=== PATIENT | female | born 1995 | race Caucasian/White ===

== ENCOUNTER 2024-04-28 10:44 | Day surgery (SDC) | payer BC ==
[2024-04-28 11:09] VITALS: BMI 30.7
[2024-04-28] MEDS ORDERED: hydrALAZINE 20 MG/ML VIAL SLOW IVP PRN (11:18)
[2024-04-28 11:51] LABS: Bilirubin Neg (Negative); Blood, Urine Negative (Negative); Clarity Cloudy (Clear); Glucose, Urine (Dipstick) Normal (Negative); Ketone, Urine Negative (Negative); Leukocyte 500 (Negative); Nitrite Negative (Negative); Protein, Urine (Dipstick) 15 mg/dl (Neg-Trace); Specific Gravity, Urine 1.015 (1.005-1.030); Urobilinogen Normal mg/dL (Less than 2)
[2024-04-28] MEDS: Lactated Ringer's 1,000 ML IV SCH (12:08)
[2024-04-28 12:09] LABS: Bacteria/HPF 4+ HPF (None Seen); CAUTI Indications for Culture Pregnancy; RBC/HPF None Seen HPF (0-3); Squamous Epithelial Greater than 50 HPF (0-3)
[2024-04-28 12:12] LABS: Urine Culture Reflex Yes Yes
[2024-04-28 12:33] LABS: #Basophils 0.04 10x3/uL (0.0-0.2); #Eosinophils 0.15 10x3/uL (0.0-0.5); #Monocytes 0.71 10x3/uL (0.0-1.1); #Neutrophils 7.72 10x3/uL (1.5-8.4); %Basophils 0.4 % (0.0-2.0); %Eosinophils 1.4 % (0.0-6.0); %Monocytes 6.5 % (0.0-10.0); %Neutrophils 70.2 % (40.0-75.0); Hematocrit 36.4 % (34.9-44.5); Mean Corpuscular Hemoglobin 30.2 pg (27.0-33.0); Mean Corpuscular Volume 91.7 fL (81.6-98.3); Mean Platelet Volume 10.4 fL (7.4-10.4); Platelet Count 237 10x3/uL (150-450); Red Blood Cell (RBC) Count 3.97 10x6/uL (3.90-5.03); White Blood Cell (WBC) Count 10.97 10x3/uL (3.5-10.5)
[2024-04-28] MEDS: cefTRIAXone\\ROCEPHIN 1 GM in Sodium Chloride 0.9% 100 ML IVPB SCH (12:38)
[2024-04-28 12:48] LABS: ALT (SGPT) 9 U/L (8-55); AST (SGOT) 15 U/L (5-34); Albumin 3.1 g/dL (3.5-5.0); Alkaline Phosphatase 105 U/L (40-110); Anion Gap 13 mmol/L (10-20); BUN (Urea Nitrogen) 5 mg/dL (7.0-18.7); Calc. Creatinine Clearance 181 mL/min (70-130); Calcium 9.1 mg/dL (7.8-10.44); Carbon Dioxide 21 mmol/L (22-29); Chloride 106 mmol/L (98-107); Estimated GFR 123; Globulin 3.3 g/dL (2.4-3.5); Glucose 77 mg/dL (70-105); Potassium 3.9 mmol/L (3.5-5.1); Protein, Total 6.4 g/dL (6.0-8.3); Sodium 136 mmol/L (136-145)
== END 2024-04-28 13:30 | disposition home health service (06) ==
LOC: CSHLD/OP 10:44
PROVIDERS: ATTEND Obstetrics & Gynecology
DX: O47.03 False labor before 37 completed weeks of gestation, third trimester (principal); O35.B Maternal care for other (suspected) fetal abnormality and damage, fetal cardiac anomalies; Q21.9 Congenital malformation of cardiac septum, unspecified; O99.343 Other mental disorders complicating pregnancy, third trimester; F41.9 Anxiety disorder, unspecified; O23.43 Unspecified infection of urinary tract in pregnancy, third trimester; O23.593 Infection of other part of genital tract in pregnancy, third trimester; B96.89 Other specified bacterial agents as the cause of diseases classified elsewhere; Z98.84 Bariatric surgery status; Z3A.34 34 weeks gestation of pregnancy; Z98.890 Other specified postprocedural states; Z79.899 Other long term (current) drug therapy
CPT/HCPCS: 80053; 81001; 85025; 87086; 87480; 87510; 87660; 96360; 99284; J0696

== ENCOUNTER 2024-04-29 12:37 | Day surgery (SDC) | payer BC ==
[2024-04-29 13:17] VITALS: BMI 30.7
[2024-04-29] MEDS ORDERED: hydrALAZINE 20 MG/ML VIAL SLOW IVP PRN (13:44)
== END 2024-04-29 14:04 | disposition home or self-care (01) ==
LOC: CSHLD/OP 12:37
PROVIDERS: ATTEND Obstetrics & Gynecology
DX: O23.43 Unspecified infection of urinary tract in pregnancy, third trimester (principal); O23.593 Infection of other part of genital tract in pregnancy, third trimester; B96.89 Other specified bacterial agents as the cause of diseases classified elsewhere; O47.03 False labor before 37 completed weeks of gestation, third trimester; Z3A.34 34 weeks gestation of pregnancy; Z79.899 Other long term (current) drug therapy
CPT/HCPCS: 99282

== ENCOUNTER 2024-05-18 18:49 | Day surgery (SDC) | payer BC ==
[2024-05-18 19:11] VITALS: BMI 31.1
[2024-05-18] MEDS ORDERED: hydrALAZINE 20 MG/ML VIAL SLOW IVP PRN (19:25)
[2024-05-18 19:55] LABS: #Basophils Less than 0.03 10x3/uL (0.0-0.2); #Monocytes 0.86 10x3/uL (0.0-1.1); #Neutrophils 7.27 10x3/uL (1.5-8.4); %Basophils 0.2 % (0.0-2.0); %Eosinophils 1.9 % (0.0-6.0); %Lymphocytes 20.9 % (18.0-47.0); %Monocytes 8.1 % (0.0-10.0); %Neutrophils 68.5 % (40.0-75.0); Hematocrit 33.4 % (34.9-44.5); Hemoglobin 11.5 g/dL (12.0-15.5); Mean Corpuscular HGB CONC 34.4 g/dL (32.0-36.0); Mean Corpuscular Hemoglobin 31.3 pg (27.0-33.0); Mean Corpuscular Volume 90.8 fL (81.6-98.3); Mean Platelet Volume 11.1 fL (7.4-10.4); Platelet Count 230 10x3/uL (150-450); RBC Distribution Width 13.9 % (11.5-14.5); Red Blood Cell (RBC) Count 3.68 10x6/uL (3.90-5.03); White Blood Cell (WBC) Count 10.61 10x3/uL (3.5-10.5)
[2024-05-18 20:09] LABS: ALT (SGPT) Less than 7 U/L (Less than 34); AST (SGOT) 18 U/L (11-34); Albumin 2.9 g/dL (3.1-4.5); Alkaline Phosphatase 103 U/L (40-110); Anion Gap 11 mmol/L (10-20); BUN (Urea Nitrogen) 6 mg/dL (7.0-18.7); Bilirubin, Total 0.6 mg/dL (0.3-1.2); Calc. Creatinine Clearance 209 mL/min (70-130); Calcium 8.7 mg/dL (7.8-10.44); Carbon Dioxide 21 mmol/L (22-29); Chloride 110 mmol/L (98-107); Estimated GFR 127; Globulin 3.4 g/dL (2.4-3.5); Glucose 96 mg/dL (70-105); Potassium 3.3 mmol/L (3.5-5.1); Protein, Total 6.3 g/dL (6.0-8.3); Sodium 139 mmol/L (136-145)
[2024-05-18 20:56] LABS: Bilirubin Neg (Negative); Blood, Urine Negative (Negative); Clarity Clear (Clear); Glucose, Urine (Dipstick) Normal (Negative); Ketone, Urine Negative (Negative); Leukocyte 500 (Negative); Nitrite Negative (Negative); Protein, Urine (Dipstick) 15 mg/dl (Neg-Trace); Urobilinogen Normal mg/dL (Less than 2); pH, Urine 6.5 (5.0-9.0)
[2024-05-18 21:13] LABS: CAUTI Indications for Culture Pregnancy; RBC/HPF 0-3 HPF (0-3)
[2024-05-18 21:14] LABS: Transitional Epithelial 0-3 HPF (None Seen)
[2024-05-18 21:15] LABS: Bacteria/HPF 2+ HPF (None Seen); Mucous/LPF 1+ LPF (<2+)
[2024-05-18 21:16] LABS: Urine Culture Reflex Yes Yes
== END 2024-05-18 21:45 | disposition home or self-care (01) ==
LOC: CSHLD/OP 18:49
PROVIDERS: ATTEND Obstetrics & Gynecology
DX: O47.1 False labor at or after 37 completed weeks of gestation (principal); O99.891 Other specified diseases and conditions complicating pregnancy; R51.9 Headache, unspecified; H53.9 Unspecified visual disturbance; O24.419 Gestational diabetes mellitus in pregnancy, unspecified control; F39 Unspecified mood [affective] disorder; O99.343 Other mental disorders complicating pregnancy, third trimester; O98.513 Other viral diseases complicating pregnancy, third trimester; B00.9 Herpesviral infection, unspecified; Z3A.36 36 weeks gestation of pregnancy; Z79.899 Other long term (current) drug therapy
CPT/HCPCS: 36415; 76819; 80053; 81001; 82570; 84156; 85025; 87086; 99283

== ENCOUNTER 2024-05-27 19:04 | Inpatient (IN) | payer BC ==
[~2024-05-27 19:04] MED LIST: Bupivacaine 0.25% HCL 30 ML VIAL ONE
[2024-05-27] MEDS ORDERED: hydrALAZINE 20 MG/ML VIAL SLOW IVP PRN ×2 (20:02→21:56)
[2024-05-27 20:09] VITALS: BMI 31.6
[2024-05-27 20:44] LABS: Creatinine, Urine 174.59 mg/dL (16.00-327.00)
[2024-05-27 21:35] LABS: #Basophils 0.03 10x3/uL (0.0-0.2); #Eosinophils 0.16 10x3/uL (0.0-0.5); #Monocytes 0.81 10x3/uL (0.0-1.1); %Basophils 0.3 % (0.0-2.0); %Eosinophils 1.5 % (0.0-6.0); %Lymphocytes 23.3 % (18.0-47.0); %Monocytes 7.4 % (0.0-10.0); %Neutrophils 67.1 % (40.0-75.0); Hematocrit 34.4 % (34.9-44.5); Hemoglobin 11.4 g/dL (12.0-15.5); Mean Corpuscular HGB CONC 33.1 g/dL (32.0-36.0); Mean Corpuscular Volume 90.5 fL (81.6-98.3); Mean Platelet Volume 11.3 fL (7.4-10.4); Platelet Count 214 10x3/uL (150-450); RBC Distribution Width 13.9 % (11.5-14.5); White Blood Cell (WBC) Count 11.01 10x3/uL (3.5-10.5)
[2024-05-27 21:50] LABS: ALT (SGPT) Less than 7 U/L (Less than 34); AST (SGOT) 15 U/L (11-34); Alkaline Phosphatase 118 U/L (40-110); Anion Gap 12 mmol/L (10-20); BUN (Urea Nitrogen) 7 mg/dL (7.0-18.7); Bilirubin, Total 0.7 mg/dL (0.3-1.2); Calc. Creatinine Clearance 202 mL/min (70-130); Calcium 8.5 mg/dL (7.8-10.44); Carbon Dioxide 21 mmol/L (22-29); Chloride 109 mmol/L (98-107); Estimated GFR 125; Globulin 3.4 g/dL (2.4-3.5); Glucose 79 mg/dL (70-105); Potassium 3.5 mmol/L (3.5-5.1); Protein, Total 6.4 g/dL (6.0-8.3); Sodium 138 mmol/L (136-145)
[2024-05-27] MEDS ORDERED: fentaNYL 50 mcg/mL 1 mL Vial SLOW IVP PRN (21:56)
[2024-05-27] MEDS ORDERED: Lidocaine 1% (PF) 30 ML VIAL SC PRN (21:56)
[2024-05-27] MEDS ORDERED: Tranexamic Acid 1,000 MG/10 ML VIAL IVP PRN (21:56)
[2024-05-27] MEDS: Lactated Ringer's 1,000 ML IV SCH (21:56)
[2024-05-27] MEDS ORDERED: Carboprost 250 MCG/ML AMP IM PRN (21:56)
[2024-05-27] MEDS ORDERED: Promethazine HCl 25 MG/ML VIAL IM PRN (21:56)
[2024-05-27] MEDS ORDERED: Ondansetron PF 4 MG/2 ML Vial IVP PRN (21:56)
[2024-05-27] MEDS ORDERED: Ibuprofen 800 MG TAB PO PRN (21:56)
[2024-05-27] MEDS ORDERED: Misoprostol 200 MCG TAB PR PRN (21:56)
[2024-05-27] MEDS ORDERED: Diphenoxylate HCl/Atropine Tablet PO PRN ×2 (21:56)
[2024-05-27] MEDS ORDERED: Oxytocin 30 units/NS 500 ML 500 ML IV SCH (22:00)
[2024-05-27] MEDS: fentaNYL/Ropivacaine Epidural 100 ML ONE (23:42)
[2024-05-27 23:52] LABS: Syphilis Antibody Nonreactive (Nonreactive); Syphilis Antibody Index 0.09 S/CO (<1.00 Non-Reactive)
[2024-05-27 23:53] LABS: HBsAg Index 0.17 S/CO (0-0.99); Hep B Surf Ag - L&D Non-Reactive S/CO (NonReactive)
[2024-05-28] MEDS ORDERED: Moisturizing Cream (Eucerin) 113 GM JAR TOP PRN (00:03)
[2024-05-28] MEDS ORDERED: Promethazine HCl 25 MG/ML VIAL IM PRN (00:03)
[2024-05-28] MEDS ORDERED: Lactated Ringer's 500 ML IV PRN (00:03)
[2024-05-28] MEDS ORDERED: ePHEDrine Sulfate 50 MG/10 ML VIAL SLOW IVP PRN (00:03)
[2024-05-28] MEDS ORDERED: Naloxone HCl 0.4 mg/ml Vial IVP PRN ×2 (00:03)
[2024-05-28] MEDS ORDERED: diphenhydrAMINE 50 MG/ML VIAL IVP PRN (00:03)
[2024-05-28] MEDS ORDERED: Ondansetron PF 4 MG/2 ML Vial IVP PRN (00:03)
[2024-05-28] MEDS: Acetaminophen 325 MG TAB PO PRN ×2 (00:09→13:27)
[2024-05-28] MEDS ORDERED: Communication Order-Pharmacy FS SCH (00:15)
[2024-05-28] MEDS ORDERED: fentaNYL 2 mcg/Ropivacaine 0.2% Epidural 100 ML CADD EPIDURAL SCH (00:15)
[2024-05-28] MEDS ORDERED: Bisacodyl 10 MG SUPP PR PRN (10:57)
[2024-05-28] MEDS ORDERED: Milk Of Magnesia 30 ML UDCUP PO PRN (10:57)
[2024-05-28] MEDS ORDERED: hydrALAZINE 20 MG/ML VIAL SLOW IVP PRN (10:57)
[2024-05-28] MEDS ORDERED: diphenhydrAMINE 25 MG CAP PO PRN (10:57)
[2024-05-28] MEDS ORDERED: Lanolin Ointment 7 GM TUBE TOP PRN (10:57)
[2024-05-28] MEDS ORDERED: Witch Hazel 100 PAD JAR TOP SCH (13:00)
[2024-05-28] MEDS: Benzocaine-Menthol 82.5 ML CAN TOP SCH (13:30)
[2024-05-28] MEDS: Ibuprofen 800 MG TAB PO SCH (17:54)
[2024-05-28] MEDS: Ferrous Sulfate 325 MG TAB PO SCH (17:55)
[2024-05-28] MEDS: Boostrix 0.5 ML (Tdap) VIAL (>/=7 yrs of age) IM ONE (19:24)
[2024-05-28] MEDS: Docusate 100 MG CAP PO SCH (20:43)
[2024-05-29] MEDS: Prenatal Vitamin 1 TAB PO SCH (09:15)
[2024-05-29] MEDS: Simethicone Chewable 80 MG TAB PO PRN (09:18)
[2024-05-29] MEDS: traMADol HCl 50 MG TAB PO PRN (15:37)
[2024-05-29] MEDS: Witch Hazel 100 PAD JAR TOP PRN (18:10)
[2024-05-30 07:30] VITALS: BP 128/83; TEMP 97.9
== END 2024-05-30 10:50 | disposition home or self-care (01) | DRG 806 ==
LOC: CSHLD/OP 19:04 → CSHLD 21:56 → CSHPP 05-28 11:10
PROVIDERS: ADMIT Obstetrics & Gynecology; ATTEND Obstetrics & Gynecology
PROC: 10E0XZZ Delivery of Products of Conception, External Approach (ICD-10-PCS; principal; 2024-05-27)
PROC: 0UQMXZZ Repair Vulva, External Approach (ICD-10-PCS; 2024-05-27)
PROC: 0UQGXZZ Repair Vagina, External Approach (ICD-10-PCS; 2024-05-27)
DX: O76 Abnormality in fetal heart rate and rhythm complicating labor and delivery (principal); O71.4 Obstetric high vaginal laceration alone; Z37.0 Single live birth; O72.1 Other immediate postpartum hemorrhage; O13.4 Gestational [pregnancy-induced] hypertension without significant proteinuria, complicating childbirth; Z3A.39 39 weeks gestation of pregnancy; R14.1 Gas pain; O90.89 Other complications of the puerperium, not elsewhere classified; Z98.84 Bariatric surgery status; Z79.899 Other long term (current) drug therapy
CPT/HCPCS: 36415; 51702; 76819; 80053; 82570; 84156; 85025; 86780; 86850; 86900; 86901; 87340; 99285; J0665; J7120